=== PATIENT | male | born 1990 | race Caucasian/White ===

== ENCOUNTER 2019-01-15 15:35 | Inpatient (IN) | payer OTHER ==
[2019-01-15] MEDS ORDERED: LORazepam 1 MG TAB PO ONE (15:43)
[2019-01-15] MEDS ORDERED: OLANZapine DISINTEGR 10 MG TAB PO ONE (15:43)
--- NOTE | 2019-01-15 15:47 | EDPHY ---
H & P Time Seen by Provider: 01/15/19 15:36 HPI/ROS: Chief complaint. Hearing voices HPI. 28-year-old male with history of schizophrenia. Not on medication for 1 year. He was seen by bystanders talking to a lion and counting down numbers to 666. He says that the devil is in the lion and the devil is everywhere. He denies injury. He denies illness. [place] [employer] contacted the patient and have placed him on an M1 hold. Patient tells me he is hearing voices and that they are critical of him. ROS 10 systems were reviewed and negative with the exception of the elements mentioned in the history of present illness (Alexis Tompkins) Past Medical/Surgical History: Schizophrenia (Alexis Tompkins) Social History: Single, nonsmoker, no alcohol (Alexis Tompkins) Physical Exam: General Appearance: Alert well-developed male mild distress vital signs are stable Eyes: Pupils equal and round no pallor or injection. ENT, Mouth: Mucous membranes are moist. Respiratory: There are no retractions, lungs are clear to auscultation. Cardiovascular: Regular rate and rhythm. Gastrointestinal: Abdomen is soft and nontender, no masses, bowel sounds normal. Neurological: Awake and alert, sensory and motor exams grossly normal. Skin: Warm and dry, no rashes. Musculoskeletal: Neck is supple nontender. Extremities symmetrical, full range of motion. Psychiatric: Patient is oriented X 3, there is no agitation. (Alexis Tompkins) Constitutional: Initial Vital Signs Temperature (C) 36.9 C 01/15/19 15:35 Heart Rate 117 H 01/15/19 15:35 Respiratory Rate 15 01/15/19 15:35 Blood Pressure 133/72 H 01/15/19 15:35 O2 Sat (%) 91 L 01/15/19 15:35 O2 Delivery Mode Room Air Allergies/Adverse Reactions: No Known Allergies Allergy (Unverified 01/15/19 15:50) Home Medications: Medication Instructions Recorded NK [No Known Home Meds] 01/15/19 Medical Decision Making ED Course/Re-evaluation: Patient's labs are reviewed and are normal. Patient is cleared for mental health evaluation (Alexis Tompkins) 0700: Patient is sleeping. No acute distress. Patient here with the acute psychosis. Patient pending mental health evaluation. Most likely placement. Signed over to Dr. Byrne (Vincent Merrill) 0854: Patient has been accepted by Dr. Robertson at the [facility]. (Narciso Byrne) Differential Diagnosis: I considered drug intoxication, drug withdrawal. Patient has history of schizophrenia 0 and has been without medication for 1 year. Patient is gravely disabled from his schizophrenia (Alexis Tompkins) Care Turn Over: care to Dr. Logan at 11 pm (Alexis Tompkins) - Data Points Laboratory Results: Laboratory Results 01/15/19 16:10 01/15/19 16:10 Medications Given: Discontinued Medications Lorazepam (Ativan) 1 mg PO EDNOW ONE Stop: 01/15/19 15:44 Last Admin: 01/15/19 15:49 Dose: 1 mg Olanzapine (Zyprexa Zydis) 10 mg PO EDNOW ONE Stop: 01/15/19 15:44 Last Admin: 01/15/19 15:49 Dose: 10 mg Departure - Departure Clinical Impression: Acute psychosis Schizophrenia Qualifiers: Schizophrenia type: unspecified Qualified Code(s): F20.9 - Schizophrenia, unspecified Condition: Fair Referrals: NONE *PRIMARY CARE P,. [Primary Care Provider] - As per Instructions
[2019-01-15 16:21] LABS: PLATELET COUNT 280 10^3/uL (150-400)
[2019-01-16] MEDS ORDERED: LORazepam 1 MG TAB PO ONE (03:15)
--- NOTE | 2019-01-16 07:51 | ASMTLCPROG ---
Notes Note: Notes: Met with this 28 y/o single, transient male for evaluation. Pt meets the criteria requiring in-pt psychiatric hospitalization. Pt Rights read to patient. Pt signed, and a copy was left for him by his bedside. Date Signed: 01/16/2019 07:50 AM Electronically Signed By:Ashanti Medina
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
--- NOTE | 2019-01-16 08:56 | ASMTLCPROG ---
Notes Note: Notes: [facility] by Dr. Robertson. Hospitalist latha. Date Signed: 01/16/2019 08:55 AM Electronically Signed By:Ashanti Medina
--- NOTE | 2019-01-16 09:00 | ASMTTCLDSP ---
TLC Discharge Disposition Disposition: Answers: Admit Disposition Notes: Notes: In consultation with ED MD, Dr. Tompkins and on-call psychiatrist, Dr. Robertson, both concurred that pt meets the 27-65 criteria requiing in-pt psychiatric hospitalization as pt appears to be gravely disabled. For inpatient Saman Robertson MD admission, the following psychiatrist agreed to accept patient for admission to Behavioral Health ([facility]): Type of Hold: Answers: M1/72-hour Hold Hold initiated by: Answers: Police Date Signed: 01/16/2019 08:59 AM Electronically Signed By:Ashanti Medina
--- NOTE | 2019-01-16 10:02 | GCON ---
[f rep st] CONSULTATION DATE OF CONSULTATION: 01/16/2019 The patient is a 28-year-old gentleman with a history of schizophrenia, who was found by police yeste ricardo yelling at a lion that did not exist, thinking the devil was coming for him, and displaying othe r behaviors of acute psychosis. He has been off medication for a year. When I speak to him, he has been in the emergency department for 17 hours. He is sleeping comfortably after receiving 10 mg of Z yprexa as well as a couple milligrams of Haldol. He denies fever, chills, cough, sputum, nausea, vomiting, diarrhea, painful areas on his skin. He do es not smoke cigarettes, drink alcohol, or use drugs. When I asked him where he lives, he said home is where the heart is, he would not answer whether he lives in a house or apartment or was homeless. He denies urgency, frequency, dysuria, cough, sputum, or shortness of breath. REVIEW OF SYSTEMS: Complete 10-point review of systems conducted, negative except for that noted in the HPI. PAST MEDICAL HISTORY: Schizophrenia. ALLERGIES: No known drug allergies. HOME MEDICATIONS: None. SOCIAL HISTORY: Unclear where he lives. No tobacco. No alcohol. No drugs. FAMILY HISTORY: Reviewed and unremarkable. PHYSICAL EXAMINATION: VITAL SIGNS: Temp 37, blood pressure 133/72, pulse 117, breathing 15 times a minute, 91% on room air. GENERAL: No acute distress lying flat. HEENT: Sclerae anicteric. Oropha rynx clear. Mucous membranes moist. NECK: Supple without lymphadenopathy or JVD. LUNGS: Clear to auscultation anterolaterally. HEART: S1, S2. Borderline tachycardic. ABDOMEN: Soft, nontender, nondistended. LOWER EXTREMITIES: Without edema. Calves nontender. Radial pulses 2+. NEUROLOGIC: The patient is sedated. LABS: White count 8.2, hematocrit 44, platelets are 280,000. Chem-7 is normal. BUN and creatinine are 8 and 1.0. Tox screen is negative. I have discussed the case with Dr. Narciso Byrne, current ER doctor. ASSESSMENT/PLAN: A 28-year-old gentleman with schizophrenia. 1. Schizophrenia. Patient warrants Behavioral Health hospitalization for being gravely unstable. 2. Tachycardia. He has no fever, leukocytosis, or localizing symptoms. We will follow. 3. Encephalopathy. I think the patient is medicated at this point in time. We will follow. 4. Disposition to Behavioral Health. Thank you for this consultation. Hospital Medicine will not follow. Please call if the patient liu ins tachycardic for longer than 36 hours. /[id number]/MODL
[2019-01-16] MEDS ORDERED: OLANZapine DISINTEGR 10 MG TAB PO PRN (15:42)
[2019-01-16] MEDS ORDERED: LORazepam 0.5 MG TAB PO PRN (15:42)
[2019-01-16] MEDS ORDERED: MAGNESIUM HYDROXIDE 30 ML UDCUP PO PRN (15:42)
[2019-01-16] MEDS ORDERED: NICOTINE POLACRILEX 2 MG GUM B PRN (15:42)
[2019-01-16] MEDS ORDERED: ACETAMINOPHEN 325 MG TAB PO PRN (15:42)
[2019-01-16] MEDS ORDERED: MAG HYDROX/AL HYDROX/SIMETH 30 ML UDCUP PO PRN (15:42)
--- NOTE | 2019-01-17 10:48 | ASMTBHMTP ---
Master Treatment Plan Master Treatment Plan Answers: Impaired Reality for: Date: 01/17/2019 Diagnosis on Admission: Schizophrenia 295.90 Expected length of stay: 3-5 Days Reason for admission: Notes: This 28 y/o transient male was brought to the ED on an M-1 by [employer] Police as he was found talking to a statue of a lion, counting to himself beginning at 666 because "the devil is in the animal." Pt reports that the devil is everywhere and is following him. He told the police he has been off medication for at least a year and traveled here a few days ago from [place] where he lives with his mother. Pt denies drug use in the past year. Admits to auditory hallucinations currently telling hm to count and saying negative things to him about himself. He currently denies depression, S/I, P/I or H/I. Patient's stated presenting problems: Notes: Pt. reports he was brought to the hospital by police. Pt. stated he was going to go [facility], was "hearing voices", which "told to look at lion statue" adding he began counting while looking at the lion. Pt. reports hearing voices form "long time", and denies they are command hallucinations. Patient's goals for treatment: Notes: Pt. stated his goal is for "my mind to be settle so I can live a normal life". Patient's strengths: Notes: Pt. reports his strength is "learning" adding he likes to learning about everything. Identify supports outside of hospital: Notes: Pt. stated his mother, Hodan, who lives in [place]. Discharge criteria: Notes: Psychotic symptoms will be reduced or eliminated with return to baseline functioning in affect, thinking, and behavior prior to discharge. Initial disposition plan/considerations: Notes: Pt. stated he recently come to [place] from [place] last week, and is unsure if he will stay in [place] or return to [place]. Master Treatment Plan Required Signatures Psychiatrist signature: Answers: Saman Robertson MD: RN on-shift signature: Answers: RN: Patient signature: Answers: Patient: Date Signed: 01/17/2019 10:47 AM Electronically Signed By:Aidee Cohn
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
[2019-01-17] MEDS: OLANZapine 2.5 MG TAB PO SCH ×3 (21:00→21:09)
[2019-01-18] MEDS ORDERED: LORazepam 0.5 MG TAB PO PRN (05:19)
[2019-01-18 06:52] VITALS: BP 113/60
[2019-01-18] MEDS ORDERED: OLANZapine DISINTEGR 5 MG TAB PO PRN (08:30)
--- NOTE | 2019-01-18 12:03 | BDS ---
[f rep st] BEHAVIORAL HEALTH DISCHARGE SUMMARY REASON FOR ADMISSION: From the ED note dated 01/15/2019, patient with history of schizophrenia, reportedly not on medications for 1 year, was seen by bystanders talking to a lion and counting down numbers to 666. The patient reported that the devil is in the lion and the devil is everywhere. The patient was contacted by [employer] and placed on an M1 hold. The patient reported he was hearing voices and voices were critical of him. The patient was admitted involuntarily and on an M1 hold due to being gravely disabled due to a mental illness. Patient was admitted for safety, crisis stabilization, and medication management. ADMITTING DIAGNOSES: 1. Schizophrenia. 2. Homelessness. ADMISSION PHYSICAL EXAM: Patient was seen on 01/16/2019, for history and physical consultation for medical clearance for inpatient psychiatric hospitalization and treatment. The patient was medically cleared for inpatient psychiatric hospitalization and treatment. For further details, please refer to consultation note dated 01/16/2019. ADMISSION LABS: 1. CBC within normal limits, except neutrophils were elevated at 76.3, eosinophils were low at 0.0, absolute eosinophils were low at 0.00. 2. BMP within normal limits. 3. Toxicology screen negative for all the substances that were screened and negative for ethyl alcohol. MAJOR PROCEDURES OR TESTS: None. HOSPITAL COURSE: The most prominent symptoms and behaviors while the patient was here were reports of auditory hallucinations. Patient was socially withdrawn, often in his room. Minimal interaction with staff and other patients. Treatment modalities utilized were milieu and group therapy. Zyprexa 2.5 mg p.o. at bedtime was started to target psychosis symptoms, was tolerated with no report of side effects and with good response. Patient has improved considerably with no signs of psychiatric symptoms and no psychiatric symptoms expressed. Patient reports he has improved since admission, states to be in stable condition, feels safe to discharge, and he contracts for safety. Patients response to treatment was good. There were no adverse or unexpected results of treatment. The patient was safe throughout stay, active in treatment , engaged in groups, and was appropriate with staff. Patient met with treatment team prior to discharge to assess readiness to discharge and review discharge plan. The treatment team consensus is the patient in stable condition , has a safe discharge plan, and is ready to discharge today. CONDITION AT DISCHARGE: Patient is in stable condition and is no longer a danger to self or others, and is not gravely disabled due to mental illness. Patient is no longer in need of inpatient level of care, and can be safely and effectively treated within the community. The patients level of risk at time of discharge is low. MSE: The patient is casually dressed and with good hygiene , and looks stated age. Patient is sitting, posture is upright, and position is relaxed. Patient appears awake, alert, and responds appropriately and reasonably during interview. Patient is engaged, relates well to interviewer, and emotional facial expression is appropriate to situation and changes appropriately with topic. Patient is cooperative, makes comfortable eye contact , and movements are voluntary, deliberate, coordinated, and smooth and even with no inappropriate movements. Patient makes laryngeal sounds effortlessly and shares conversation appropriately; pace of conversation is appropriate, and stream of talking is fluent; articulation is clear and understandable; word choice is effortless and appropriate for education level; completes sentences, occasionally pausing to think; rate and volume are appropriate for interview and setting. Patient reports mood as euthymic. Patients affect is stable with full variable range, congruent with mood, and appropriate to speech and circumstances. Patient has linear and logical thinking, with no loose associations, tangential thought, thought blocking, concrete thinking, or any other signs of formal thought disorder. Patient denies suicidal and homicidal ideation, and denies hallucinations and delusions. Patient appears to be a reliable historian with sound judgement and good insight into current condition. Patient has no apparent dysfunction in recent or remote memory noted , and no evidence of gross cognitive dysfunction noted at any point during the interview. DISCHARGE DIAGNOSES: 1. Schizophrenia. 2. Homelessness. CURRENT MEDICATIONS: After reviewing options, risks and benefits with the patient, the patient agrees to continue Zyprexa 2.5 mg p.o. at bedtime. The patient requests prescription for Zyprexa at time of discharge. Prescription for 30 days is provided. Prescription is reviewed with the patient at time of discharge to ensure accuracy and patient understanding. DISPOSITION: Patient left hospital independently and voluntarily, and plans to go to the homeless alf in [place], [place]. FOLLOWUP: in school suspension coordinator reports the appropriate outpatient follow-up services have been established and outpatient appointments have been scheduled. The patient received written instructions with times and dates of outpatient follow-up appointments. The following follow-up recommendations were provided to the patient at discharge: Continue psychotropic medications as prescribed and attend appointments as scheduled. Report any side effects to a psychiatric outpatient provider, a primary care provider, or other health clinical care manager. Address any questions or problems concerning the psychotropic medications with a psychiatric outpatient provider, a primary care provider, or other health clinical care manager. Contact [facility] or [facility], or go to the nearest emergency room, if you are ever a danger to yourself/others, or unable to care for yourself. As soon as possible, establish a routine medication management treatment with a psychiatric provider, establish routine therapy appointments, and follow-up with a primary care provider. LEGAL COURSE: The patient was admitted on an M1 hold for involuntary inpatient psychiatric hospitalization. Patient discharged today independently and voluntarily. ATTITUDE AT TIME OF DISCHARGE: The patients attitude was positive at time of discharge, and patient reports looking forward to discharging today. The patient reports he feels safe to discharge, is no longer a danger to himself or others, is in stable condition, and contracts for safety. Patient states he will continue medications as prescribed, and establish medication management treatment with an outpatient provider after discharge. Patient reports he understands the information that has been provided to him, and he understands, accepts, and agrees to psychotropic medications. Patient describes internal protective factors as the coping skills he has learned while hospitalized here, and he plans to continue to practice these coping skills after discharge. LABS AND RADIOLOGY STUDIES: There were no pending labs or studies at time of discharge. ADVANCE DIRECTIVES: There were no advance directives on file, and patient was full code during this hospitalization. The following psychotropic medication treatment informed consent and recommendations were provided to the patient at time of discharge. Patient reports he understands, accepts, and agrees to the information that has been provided. PSYCHOTROPIC MEDICATION TREATMENT INFORMED CONSENT and RECOMMENDATIONS: Review nature of condition, diagnosis, and prognosis. Review nature and purpose of psychotropic medication treatment. Review type of psychotropic medications being prescribed. Review risk and benefits of psychotropic medication treatment. Review probable length of time will need to take medications. Review risk and benefits of not undergoing psychotropic medication treatment. Review alternative treatments to psychotropic medications. Review psychotropic medications contraindications, side effects, and importance of reporting any side effects to a psychiatric provider, primary care provider, or other health clinical care manager. Review importance of asking a psychiatric provider or primary care provider any questions or problems concerning the psychotropic medications. Review safety plan and the importance to contact [facility] or 911 , or go to the nearest emergency room, if ever a danger to yourself/others, or unable to care for yourself. Recommend upon discharge to establish routine medication management treatment with a psychiatric provider, establish routine therapy appointments, and follow-up with a primary care provider. Verify patient understands, accepts, and agrees to the information that has been provided. /[id number]/[id number] MTDD
== END 2019-01-18 13:18 | disposition home or self-care (01) | DRG 885 ==
LOC: BBEH 01-16 13:25
PROVIDERS: ADMIT Psychiatry & Neurology Psychiatry; ATTEND Psychiatry & Neurology Psychiatry
DX: F20.9 Schizophrenia, unspecified (principal); Z59.0 Homelessness
CPT/HCPCS: 80305; G0480